=== PATIENT | male | born 1950 ===

== ENCOUNTER 2018-03-19 14:32 | Inpatient (IN) ==
[2018-03-19] MEDS ORDERED: MORPHINE 4 MG/1 ML VIAL IV PRN (16:27)
[2018-03-19] MEDS ORDERED: ONDANSETRON 4 MG/2 ML VIAL IV PRN (16:27)
[2018-03-19] MEDS ORDERED: DEXTROSE 50% 25 GM/50 ML VIAL IV PRN (16:57)
[2018-03-19] MEDS ORDERED: GLUCAGON 1 MG VIAL IM PRN (16:57)
[2018-03-19] MEDS ORDERED: PIPERACILLIN/TAZOBACTAM 3,375 MG in SODIUM CHLORIDE 0.9% 100 ML IV ONE (17:25)
[2018-03-19] MEDS ORDERED: PIPERACILLIN/TAZOBACTAM 3,375 MG VIAL IV ONE (18:30)
[2018-03-19] MEDS ORDERED: SODIUM CHLORIDE 0.9% 100 ML IV ONE (18:31)
[2018-03-19 18:41] LABS: Basophils % 0.2 % (0.0-0.8); Eosinophils % 0.2 % (0.00-10.9); Hematocrit 36.6 VOL% (42.0-52.0); Hemoglobin 13.2 GM/DL (14.0-18.0); Immature Granulocytes % 0.8 %; Immature Granulocytes Absolute 0.09 #; Lymphocytes # 1.1 10*3/uL (1.4-4.0); Mean Corpuscular HGB Conc 36.1 GM/DL (32-36); Mean Corpuscular Hemoglobin 29 PG (27-34); Mean Corpuscular Volume 80.1 FL (87-102); Mean Platelet Volume 11.1 FL (9.6-12.0); Monocytes # 1.2 10*3/uL (0.11-0.8); Monocytes % 10.4 % (1.7-12.7); Neutrophils # 8.8 10*3/uL (1.4-7.4); Neutrophils % 78.4 % (38.7-73.9); Platelet Count 327 T/CUMM (130-400); Red Blood Count 4.57 MC/CUMM (3.8-5.5); Red Cell Distribution Width 15.7 % (9.3-17.3); White Blood Count 11.2 T/CUMM (4-12)
[2018-03-19 18:48] LABS: PT Patient Result 10.8 SECS; Partial Thromboplastin Time 28.6 SECS (0-40)
[2018-03-19 18:53] LABS: Albumin 2.2 G/DL (3.4-5.0); Bilirubin,Direct 15.95 MG/DL (0.0-0.20); Calcium 8.5 MG/DL (8.5-10.1); Osmolality,Calculated 274.2 MOS/KG (273-304); Potassium 3.5 MMOL/L (3.5-5.1); Total Protein 7.9 G/DL (6.4-8.3)
[2018-03-19 18:55] LABS: Bilirubin,Total 20.2 MG/DL (0.2-1.0)
[2018-03-19] MEDS: SODIUM CHLORIDE 0.9% 1,000 ML IV SCH (20:20)
[2018-03-19] MEDS: INSULIN LISPRO 100 UNIT/ML SUBCUT SCH (21:44)
[2018-03-19] MEDS: INSULIN GLARGINE 100 UNIT/ML SUBCUT SCH (21:48)
[2018-03-19] MEDS: BRIMONIDINE/TIMOLOL OPH SOLN 5 ML BOTTLE BOTH EYES SCH (22:02)
[2018-03-19] MEDS: LATANOPROST 0.005% OPH SOLN 2.5 ML BOTTLE BOTH EYES SCH (22:02)
[2018-03-20 02:11] LABS: Basophils % 0.2 % (0.0-0.8); Eosinophils % 0.3 % (0.00-10.9); Hematocrit 34.6 VOL% (42.0-52.0); Hemoglobin 12.1 GM/DL (14.0-18.0); Immature Granulocytes % 1.2 %; Lymphocytes # 0.8 10*3/uL (1.4-4.0); Lymphocytes % 8.9 % (21.2-54.2); Mean Corpuscular Hemoglobin 28 PG (27-34); Mean Corpuscular Volume 80.1 FL (87-102); Mean Platelet Volume 10.8 FL (9.6-12.0); Monocytes % 11.9 % (1.7-12.7); Neutrophils # 6.7 10*3/uL (1.4-7.4); Neutrophils % 77.5 % (38.7-73.9); Platelet Count 302 T/CUMM (130-400); Red Blood Count 4.32 MC/CUMM (3.8-5.5); Red Cell Distribution Width 15.8 % (9.3-17.3); White Blood Count 8.7 T/CUMM (4-12)
[2018-03-20 02:38] LABS: Calcium 8.2 MG/DL (8.5-10.1); Osmolality,Calculated 279.7 MOS/KG (273-304); Potassium 3.6 MMOL/L (3.5-5.1); Risk Ratio 24.7; Total Protein 6.9 G/DL (6.4-8.3); VLDL CHOLESTEROL 37.4 MG/DL
[2018-03-20 02:39] LABS: Bilirubin,Direct 14.4 MG/DL (0.0-0.20); Calcium 8.2 MG/DL (8.5-10.1); Osmolality,Calculated 279.7 MOS/KG (273-304); Potassium 3.6 MMOL/L (3.5-5.1); Total Protein 6.9 G/DL (6.4-8.3)
[2018-03-20] MEDS: PIPERACILLIN/TAZOBACTAM 3,375 MG in SODIUM CHLORIDE 0.9% 100 ML IV SCH ×2 (02:41→09:39)
[2018-03-20 03:10] LABS: Bilirubin,Indirect 3.5 MG/DL (0.0-1.0); Bilirubin,Total 17.9 MG/DL (0.2-1.0)
[2018-03-20 03:11] LABS: Bilirubin,Total 18.2 MG/DL (0.2-1.0)
[2018-03-20] MEDS: SODIUM CHLORIDE 0.9% 1,000 ML IV SCH ×4 (04:24→19:00)
[2018-03-20] MEDS: INSULIN LISPRO 100 UNIT/ML SUBCUT SCH ×4 (07:34→20:43)
[2018-03-20] MEDS: BRIMONIDINE/TIMOLOL OPH SOLN 5 ML BOTTLE BOTH EYES SCH ×2 (09:06→20:46)
[2018-03-20] MEDS: LISINOPRIL 10 MG TABLET PO SCH (09:08)
[2018-03-20] MEDS ORDERED: INDOMETHACIN SUPP 50 MG SUPP RECTAL ONE (10:00)
[2018-03-20] MEDS: LACTATED RINGERS 1,000 ML IV SCH ×2 (10:43→20:43)
[2018-03-20] MEDS ORDERED: fentaNYL 100 MCG/2 ML VIAL ONE (12:25)
[2018-03-20] MEDS ORDERED: SUCCINYLCHOLINE 200 MG/10 ML VIAL ONE (13:27)
[2018-03-20] MEDS ORDERED: LIDOCAINE 2% 5 ML VIAL ONE (13:27)
[2018-03-20] MEDS ORDERED: GLYCOPYRROLATE 0.4 MG/2 ML VIAL ONE (13:27)
[2018-03-20] MEDS ORDERED: ETOMIDATE 20 MG/10 ML VIAL IV ONE (13:27)
[2018-03-20 13:42] LABS: Apearance,Urine Slightly Hazy (Clear); Bacteria,Urine Occasional /HPF (Few); Blood, Urine Small mg/dL (Negative); Glucose,Urine (UA) Negative (Negative); Hyaline Casts,Urine 32 /LPF (0-3); Ketones,Urine Negative (Negative); Mucus,Urine Occasional /LPF (Occasional); Nitrite,Urine Negative (Negative); Protein,Urine Negative; Squamous Epithelial Cell,Urine Occasional /HPF (0-10); Urine Color Amber (Yellow); Urine Specific Gravity 1.017 (1.001-1.035); WBC,Urine 6 /HPF (0-6)
[2018-03-20 13:43] LABS: Bilirubin,Urine Moderate mg/dL (Negative)
[2018-03-20 15:48] LABS: Cancer Antigen 19-9 4.9 U/ML (0-37)
[2018-03-20] MEDS ORDERED: PROPOFOL 200 MG/20 ML VIAL IV ONE (15:56)
[2018-03-20] MEDS ORDERED: SEVOFLURANE 1 UNIT/15 MINUTE INH ONE (15:57)
[2018-03-20] MEDS ORDERED: LIDOCAINE 1% 5 ML VIAL ONE (15:57)
[2018-03-20] MEDS ORDERED: ePHEDrine 50 MG/ML AMP ONE (15:57)
[2018-03-20] MEDS ORDERED: MORPHINE 10 MG/1 ML VIAL IV PRN (16:08)
[2018-03-20] MEDS ORDERED: ONDANSETRON 4 MG/2 ML VIAL IV PRN (16:08)
[2018-03-20] MEDS: ASPIRIN EC 325 MG TABLET PO SCH (18:11)
[2018-03-20] MEDS: INSULIN GLARGINE 100 UNIT/ML SUBCUT SCH (20:43)
[2018-03-20] MEDS: LATANOPROST 0.005% OPH SOLN 2.5 ML BOTTLE BOTH EYES SCH (20:46)
[2018-03-21] MEDS: SODIUM CHLORIDE 0.9% 1,000 ML IV SCH ×6 (01:31→20:41)
[2018-03-21] MEDS: PIPERACILLIN/TAZOBACTAM 3,375 MG in SODIUM CHLORIDE 0.9% 100 ML IV SCH ×3 (04:32→20:38)
[2018-03-21 05:32] LABS: Basophils % 0.2 % (0.0-0.8); Eosinophils % 0.5 % (0.00-10.9); Hematocrit 31.9 VOL% (42.0-52.0); Hemoglobin 11.4 GM/DL (14.0-18.0); Immature Granulocytes % 0.8 %; Immature Granulocytes Absolute 0.07 #; Lymphocytes # 0.7 10*3/uL (1.4-4.0); Lymphocytes % 8.3 % (21.2-54.2); Mean Corpuscular HGB Conc 35.7 GM/DL (32-36); Mean Corpuscular Hemoglobin 29 PG (27-34); Mean Corpuscular Volume 80.4 FL (87-102); Mean Platelet Volume 11.2 FL (9.6-12.0); Monocytes # 0.6 10*3/uL (0.11-0.8); Monocytes % 7.2 % (1.7-12.7); Neutrophils # 7.4 10*3/uL (1.4-7.4); Platelet Count 271 T/CUMM (130-400); Red Blood Count 3.97 MC/CUMM (3.8-5.5); Red Cell Distribution Width 16.1 % (9.3-17.3); White Blood Count 8.9 T/CUMM (4-12)
[2018-03-21 06:00] LABS: Calcium 7.9 MG/DL (8.5-10.1); Osmolality,Calculated 284.7 MOS/KG (273-304); Potassium 3.8 MMOL/L (3.5-5.1)
[2018-03-21 06:05] LABS: Albumin 1.7 G/DL (3.4-5.0); Osmolality,Calculated 282.8 MOS/KG (273-304); Potassium 3.9 MMOL/L (3.5-5.1)
[2018-03-21 06:18] LABS: Bilirubin,Total 13.2 MG/DL (0.2-1.0)
[2018-03-21] MEDS: LACTATED RINGERS 1,000 ML IV SCH (07:33)
[2018-03-21] MEDS: INSULIN LISPRO 100 UNIT/ML SUBCUT SCH ×4 (07:39→20:36)
[2018-03-21] MEDS: ASPIRIN EC 325 MG TABLET PO SCH (08:51)
[2018-03-21] MEDS: BRIMONIDINE/TIMOLOL OPH SOLN 5 ML BOTTLE BOTH EYES SCH ×2 (08:53→20:35)
[2018-03-21] MEDS: LISINOPRIL 10 MG TABLET PO SCH (08:54)
[2018-03-21] MEDS: LATANOPROST 0.005% OPH SOLN 2.5 ML BOTTLE BOTH EYES SCH (20:35)
[2018-03-21] MEDS: INSULIN GLARGINE 100 UNIT/ML SUBCUT SCH (20:37)
[2018-03-22] MEDS: PIPERACILLIN/TAZOBACTAM 3,375 MG in SODIUM CHLORIDE 0.9% 100 ML IV SCH (04:06)
[2018-03-22 05:54] LABS: Albumin 1.5 G/DL (3.4-5.0); Calcium 7.8 MG/DL (8.5-10.1); Potassium 4.4 MMOL/L (3.5-5.1); Total Protein 6.1 G/DL (6.4-8.3)
[2018-03-22 05:56] LABS: Bilirubin,Total 14.3 MG/DL (0.2-1.0)
[2018-03-22] MEDS: INSULIN LISPRO 100 UNIT/ML SUBCUT SCH ×4 (07:31→20:37)
[2018-03-22] MEDS: SODIUM CHLORIDE 0.9% 1,000 ML IV SCH ×3 (07:34→18:56)
[2018-03-22] MEDS: ASPIRIN EC 325 MG TABLET PO SCH (09:27)
[2018-03-22] MEDS: BRIMONIDINE/TIMOLOL OPH SOLN 5 ML BOTTLE BOTH EYES SCH ×2 (09:27→20:51)
[2018-03-22] MEDS: cefTRIAXone 1,000 MG in SYRINGE 1 EACH IV SCH (09:28)
[2018-03-22] MEDS: INSULIN GLARGINE 100 UNIT/ML SUBCUT SCH (20:37)
[2018-03-22] MEDS: LATANOPROST 0.005% OPH SOLN 2.5 ML BOTTLE BOTH EYES SCH (20:50)
[2018-03-22] MEDS: ACETAMINOPHEN 325 MG TABLET PO PRN (22:18)
[2018-03-23 06:51] LABS: Albumin 1.4 G/DL (3.4-5.0); Calcium 7.8 MG/DL (8.5-10.1); Osmolality,Calculated 270.1 MOS/KG (273-304); Potassium 3.8 MMOL/L (3.5-5.1); Total Protein 5.7 G/DL (6.4-8.3)
[2018-03-23 06:59] LABS: Bilirubin,Total 15.8 MG/DL (0.2-1.0)
[2018-03-23] MEDS: SODIUM CHLORIDE 0.9% 1,000 ML IV SCH ×2 (07:10→20:45)
[2018-03-23] MEDS: INSULIN LISPRO 100 UNIT/ML SUBCUT SCH ×4 (08:24→20:26)
[2018-03-23] MEDS: ASPIRIN EC 325 MG TABLET PO SCH (08:26)
[2018-03-23] MEDS: cefTRIAXone 1,000 MG in SYRINGE 1 EACH IV SCH (08:27)
[2018-03-23] MEDS: BRIMONIDINE/TIMOLOL OPH SOLN 5 ML BOTTLE BOTH EYES SCH ×2 (08:30→20:26)
[2018-03-23] MEDS: ACETAMINOPHEN 325 MG TABLET PO PRN (17:45)
[2018-03-23] MEDS: INSULIN GLARGINE 100 UNIT/ML SUBCUT SCH (20:26)
[2018-03-23] MEDS: LATANOPROST 0.005% OPH SOLN 2.5 ML BOTTLE BOTH EYES SCH (20:26)
[2018-03-24 05:41] LABS: Albumin 1.4 G/DL (3.4-5.0); Calcium 7.8 MG/DL (8.5-10.1); Potassium 3.6 MMOL/L (3.5-5.1); Total Protein 5.8 G/DL (6.4-8.3)
[2018-03-24] MEDS: INSULIN LISPRO 100 UNIT/ML SUBCUT SCH ×2 (07:55→12:25)
[2018-03-24] MEDS: cefTRIAXone 1,000 MG in SYRINGE 1 EACH IV SCH (08:00)
[2018-03-24] MEDS: ASPIRIN EC 325 MG TABLET PO SCH (08:00)
[2018-03-24] MEDS: BRIMONIDINE/TIMOLOL OPH SOLN 5 ML BOTTLE BOTH EYES SCH (08:00)
[2018-03-24] MEDS: SODIUM CHLORIDE 0.9% 1,000 ML IV SCH (10:08)
[2018-03-24 12:22] VITALS: BP 131/66
== END 2018-03-24 15:45 | disposition hospice, home (50) | DRG 436 ==
LOC: EDUNIT# → EDBD → N.ED 14:32 → SUATTDRO 15:54 → N.EDINP 15:54 → N.2W 17:04 → N.CC 19:08 → N.4E 03-22 15:52
PROVIDERS: ATTEND Internal Medicine Infectious Disease

== ENCOUNTER 2018-04-02 15:22 | Inpatient (IN) ==
[2018-04-03] MEDS ORDERED: ONDANSETRON 4 MG/2 ML VIAL IV PRN (01:54)
[2018-04-03] MEDS ORDERED: MORPHINE 4 MG/1 ML VIAL IV PRN (01:54)
[2018-04-03] MEDS ORDERED: GLUCAGON 1 MG VIAL IM PRN (02:01)
[2018-04-03] MEDS ORDERED: DEXTROSE 50% 25 GM/50 ML VIAL IV PRN (02:01)
[2018-04-03] MEDS: SODIUM CHLORIDE 0.9% 1,000 ML IV SCH ×2 (03:15→19:15)
[2018-04-03 03:18] LABS: Apearance,Urine CLOUDY (Clear); Bilirubin,Urine Moderate mg/dL (Negative); Blood, Urine Moderate mg/dL (Negative); Glucose,Urine (UA) 150 mg/dL (Negative); Granular Casts,Urine 3 /LPF (0-1); Ketones,Urine Negative (Negative); Mucus,Urine Occasional /LPF (Occasional); Nitrite,Urine Negative (Negative); Protein,Urine 100 MG/DL; RBC,Urine 21 /HPF (0-4); Squamous Epithelial Cell,Urine Occasional /HPF (0-10); Urine Color Amber (Yellow); Urine Specific Gravity 1.028 (1.001-1.035); WBC,Urine 12 /HPF (0-6)
[2018-04-03 06:29] LABS: Basophils % 0.2 % (0.0-0.8); Eosinophils % 0.2 % (0.00-10.9); Hematocrit 25.7 VOL% (42.0-52.0); Hemoglobin 8.9 GM/DL (14.0-18.0); Immature Granulocytes % 1.5 %; Immature Granulocytes Absolute 0.19 #; Lymphocytes # 0.9 10*3/uL (1.4-4.0); Lymphocytes % 7.3 % (21.2-54.2); Mean Corpuscular HGB Conc 34.6 GM/DL (32-36); Mean Corpuscular Hemoglobin 30 PG (27-34); Mean Corpuscular Volume 86.5 FL (87-102); Mean Platelet Volume 11.4 FL (9.6-12.0); Monocytes # 1.2 10*3/uL (0.11-0.8); Monocytes % 9.4 % (1.7-12.7); Neutrophils # 10.1 10*3/uL (1.4-7.4); Neutrophils % 81.4 % (38.7-73.9); Platelet Count 272 T/CUMM (130-400); Red Blood Count 2.97 MC/CUMM (3.8-5.5); White Blood Count 12.4 T/CUMM (4-12)
[2018-04-03 06:56] LABS: Albumin 1.2 G/DL (3.4-5.0); Bilirubin,Total 10.9 MG/DL (0.2-1.0); Calcium 7.5 MG/DL (8.5-10.1); Osmolality,Calculated 271.4 MOS/KG (273-304); Potassium 3.8 MMOL/L (3.5-5.1)
[2018-04-03] MEDS: INSULIN REGULAR 100 UNIT/ML SUBCUT SCH ×4 (07:55→20:06)
[2018-04-03] MEDS: PANTOPRAZOLE 40 MG TABLET PO SCH (09:24)
[2018-04-03] MEDS: ZINC OXIDE PASTE 113 GM TUBE TOP SCH ×2 (18:48→20:07)
[2018-04-04] MEDS: INSULIN REGULAR 100 UNIT/ML SUBCUT SCH ×4 (07:40→20:24)
[2018-04-04] MEDS: ZINC OXIDE PASTE 113 GM TUBE TOP SCH ×2 (10:35→20:24)
[2018-04-04] MEDS: PANTOPRAZOLE 40 MG TABLET PO SCH (10:35)
[2018-04-04] MEDS: SODIUM CHLORIDE 0.9% 1,000 ML IV SCH (15:10)
[2018-04-04] MEDS: metFORMIN 500 MG TABLET PO SCH (17:45)
[2018-04-04] MEDS: SIMVASTATIN 20 MG TABLET PO SCH (20:23)
[2018-04-04] MEDS: LATANOPROST 0.005% OPH SOLN 2.5 ML BOTTLE BOTH EYES SCH (20:24)
[2018-04-05] MEDS: INSULIN REGULAR 100 UNIT/ML SUBCUT SCH ×4 (07:55→21:44)
[2018-04-05] MEDS: PANTOPRAZOLE 40 MG TABLET PO SCH (08:57)
[2018-04-05] MEDS: LISINOPRIL 10 MG TABLET PO SCH (08:57)
[2018-04-05] MEDS: metFORMIN 500 MG TABLET PO SCH ×2 (08:57→16:58)
[2018-04-05] MEDS: ASPIRIN EC 325 MG TABLET PO SCH (08:57)
[2018-04-05] MEDS: ZINC OXIDE PASTE 113 GM TUBE TOP SCH ×2 (08:58→20:48)
[2018-04-05] MEDS: SODIUM CHLORIDE 0.9% 1,000 ML IV SCH (11:10)
[2018-04-05] MEDS: SIMVASTATIN 20 MG TABLET PO SCH (20:47)
[2018-04-05] MEDS: LATANOPROST 0.005% OPH SOLN 2.5 ML BOTTLE BOTH EYES SCH (20:48)
[2018-04-06 06:06] LABS: Albumin 1.1 G/DL (3.4-5.0); Calcium 7.4 MG/DL (8.5-10.1); Osmolality,Calculated 263.9 MOS/KG (273-304); Potassium 3.4 MMOL/L (3.5-5.1); Total Protein 5.8 G/DL (6.4-8.3)
[2018-04-06] MEDS: SODIUM CHLORIDE 0.9% 1,000 ML IV SCH (09:25)
[2018-04-06] MEDS: ASPIRIN EC 325 MG TABLET PO SCH (09:28)
[2018-04-06] MEDS: PANTOPRAZOLE 40 MG TABLET PO SCH (09:28)
[2018-04-06] MEDS: metFORMIN 500 MG TABLET PO SCH (09:28)
[2018-04-06] MEDS: LISINOPRIL 10 MG TABLET PO SCH (09:28)
[2018-04-06] MEDS: ZINC OXIDE PASTE 113 GM TUBE TOP SCH (09:56)
[2018-04-06] MEDS: INSULIN REGULAR 100 UNIT/ML SUBCUT SCH ×2 (09:57→12:35)
[2018-04-06 12:47] VITALS: BP 129/53
== END 2018-04-06 14:25 | disposition hospice, home (50) | DRG 435 ==
LOC: N.4E 04-03 00:21 → SUATTDRO 04-03 01:56
PROVIDERS: ADMIT Internal Medicine; ATTEND Internal Medicine